=== PATIENT | female | born 1970 | race Caucasian/White ===

== ENCOUNTER 2022-02-12 21:09 | Inpatient (IN) | payer BC ==
[~2022-02-12] VITALS: Ht 175.3 cm; Wt 101.1 kg
[2022-02-12 21:38] LABS: RED BLOOD COUNT 5.49 M/UL (4.00-5.10); WHITE BLOOD COUNT 18.5 K/UL (4.5-11.0)
[2022-02-12 22:05] LABS: BUN/CREATININE RATIO 29 (0-10)
[2022-02-13 08:37] LABS: BUN/CREATININE RATIO 36 (0-10)
[2022-02-13 20:16] LABS: BUN/CREATININE RATIO 30 (0-10)
[2022-02-14 03:53] LABS: WHITE BLOOD COUNT 14.2 K/UL (4.5-11.0)
[2022-02-14 04:01] LABS: HEMOGLOBIN 12.3 gm/dl (12.3-15.3); RED BLOOD COUNT 4.08 M/UL (4.00-5.10)
[2022-02-14 04:18] LABS: BUN/CREATININE RATIO 29 (0-10)
[2022-02-14 12:48] LABS: BUN/CREATININE RATIO 24 (0-10)
[2022-02-15 05:04] LABS: HEMOGLOBIN 13.2 gm/dl (12.3-15.3); RED BLOOD COUNT 4.46 M/UL (4.00-5.10); WHITE BLOOD COUNT 13.3 K/UL (4.5-11.0)
[2022-02-15 05:26] LABS: BUN/CREATININE RATIO 15 (0-10)
[2022-02-16 06:21] LABS: HEMOGLOBIN 12.6 gm/dl (12.3-15.3); RED BLOOD COUNT 4.15 M/UL (4.00-5.10); WHITE BLOOD COUNT 12.6 K/UL (4.5-11.0)
[2022-02-16 06:55] LABS: BUN/CREATININE RATIO 11 (0-10)
[2022-02-17 02:20] LABS: HEMOGLOBIN 11.5 gm/dl (12.3-15.3); RED BLOOD COUNT 3.8 M/UL (4.00-5.10); WHITE BLOOD COUNT 9.7 K/UL (4.5-11.0)
[2022-02-17 02:50] LABS: BUN/CREATININE RATIO 10 (0-10)
[2022-02-17] MEDS ORDERED: CLINDAMYCIN HC300 MG PO (19:20)
[2022-02-17] MEDS ORDERED: INSULIN LI100 UNIT/2 SQ (19:20)
[2022-02-17] MEDS ORDERED: LANTUS SOL100 UNIT/1 SQ (19:20)
[2022-02-17] MEDS ORDERED: COMFORT LANCET1 EACH MC (19:20)
[2022-02-17] MEDS ORDERED: PROTONIX 40 MG40 M1 PO (19:22)
[2022-02-17] MEDS ORDERED: K-PHOS NEUTRAL250 MG GT (19:26)
== END 2022-02-17 21:33 | disposition home or self-care (01) | DRG 637 ==
LOC: ER1 21:09 → CDU 02-13 00:40 → CCU 02-13 00:40 → MED SURG 4 02-15 16:11
PROVIDERS: Internal Medicine; Nurse Practitioner; Student in an Organized Health Care Education/Training Program; ADMIT Internal Medicine
PROC: 02HV33Z Insertion of Infusion Device into Superior Vena Cava, Percutaneous Approach (ICD-10-PCS; 2022-02-13)
PROC: B548ZZA Ultrasonography of Superior Vena Cava, Guidance (ICD-10-PCS; 2022-02-13)
PROC: B24BZZZ Ultrasonography of Heart with Aorta (ICD-10-PCS; principal; 2022-02-17)
DX: E11.10 Type 2 diabetes mellitus with ketoacidosis without coma (principal); G93.41 Metabolic encephalopathy; J18.9 Pneumonia, unspecified organism; I96 Gangrene, not elsewhere classified; J98.11 Atelectasis; E87.0 Hyperosmolality and hypernatremia; E66.9 Obesity, unspecified; F17.210 Nicotine dependence, cigarettes, uncomplicated; L89.890 Pressure ulcer of other site, unstageable; Z88.0 Allergy status to penicillin; Z79.4 Long term (current) use of insulin; Z68.35 Body mass index [BMI] 35.0-35.9, adult
CPT/HCPCS: ECHO; 0240U; 36415; 36556; 36600; 70450; 70496; 70498; 71045; 71046; 72125; 80048; 80053; 80076; 80307; 81001; 82009; 82140; 82533; 82550; 82553; 82803; 82962; 83036; 83605; 83735; 83874; 84100; 84132; 84439; 84443; 84484; 85025; 85027; 85652; 86140; 87040; 87086; 93005; 93306; 96361; 96374; 96375; 99285; C9113; J0696; J1650; J2185; J3370; J3475; J3480; J7030; J7070; Q9967